=== PATIENT | male | born 1995 | race Caucasian/White ===

== ENCOUNTER 2016-03-24 01:30 | Emergency (ER) | payer SELFPAY ==
[~2016-03-24 01:30] MED LIST: IBUP600T26 PO
[2016-03-24 01:43] VITALS: BP 124/78; PULSE 64; RESP 16; TEMP 97.8; O2SAT 97
[2016-03-24] MEDS ORDERED: SODIUM CHLOR 0.9% 1000 ML INJ 1,000 ML IV SCH (02:12)
[2016-03-24] MEDS ORDERED: KETOROLAC TROMETHAMINE 30 MG/ML (IVP) VIAL IV PUSH ONE (02:15)
[2016-03-24] MEDS ORDERED: SODIUM CHLORIDE 0.9% FLUSH 5 ML FLUSH IVF PRN (02:15)
[2016-03-24] MEDS ORDERED: ONDANSETRON HCL 4 MG/2 ML VIAL IVP ONE (02:15)
[2016-03-24 02:20] VITALS: RESP 16; O2SAT 98
[2016-03-24 02:36] LABS: AUTOMATED NEUTROPHIL # 6.9 TH/MM3 (1.8-7.7); BASOPHIL # 0.1 TH/MM3 (0-0.2); BASOPHIL % 0.5 % (0.0-2.0); EOSINOPHIL # 0.1 TH/MM3 (0-0.4); EOSINOPHIL % 1.4 % (0.0-4.0); HEMATOCRIT 44.7 % (39.0-51.0); HEMO FLAGS DIFF FINAL; LYMPH % 19.2 % (9.0-44.0); LYMPHOCYTE # 1.9 TH/MM3 (1.0-4.8); MEAN CELL VOLUME 83.2 FL (80.0-100.0); MEAN CORPUSCULAR HEMOGLOBIN 27.9 PG (27.0-34.0); MEAN CORPUSCULAR HGB CONC 33.6 % (32.0-36.0); MONO % 8.8 % (0.0-8.0); NEUT % 70.1 % (16.0-70.0); PLATELET COUNT 247 TH/MM3 (150-450); RED BLOOD COUNT 5.37 MIL/MM3 (4.50-5.90); RED CELL DISTRIBUTION WIDTH 13.2 % (11.6-17.2); WHITE BLOOD COUNT 9.8 TH/MM3 (4.0-11.0)
--- NOTE | 2016-03-24 02:51 | PD ---
HPI Chief Complaint: Abdominal Pain Time Seen by Provider: 01:56 Travel History International Travel<30 days: No Contact w/Intl Traveler<30days: No Traveled to known affect area: No History of Present Illness HPI The patient is a 20 year old male who presents to the [facility] emergency department with a history of right lower quadrant abdominal pain that began 5-6 days ago. The patient reports that the pain comes and goes. He reports the pain as a cramping sensation. He reports that he has not done any heavy lifting or traumatizing area. He denies participating in any new exercise program. He reports that the pain is somewhat similar to when he had kidney stones in the past, however he denies dysuria, change in his urine coloration, urinary frequency, or urinary urgency. The patient denies having any scrotal pain or swelling. He denies having any penile discharge. The patient denies any recent fevers, cough, congestion, neck pain, chest pain, shortness of breath , vomiting, diarrhea, or neurologic symptoms. PFS Past Medical History Narrative Medical The patient's past medical history is reportedly none. ADHD: No Cancer: No Cardiovascular Problems: No Diabetes: No Diminished Hearing: No Genitourinary: No Kidney Stones: Yes Musculoskeletal: No Neurologic: No Psychiatric: No Reproductive: No Respiratory: No Migraines: No Seizures: No Thyroid Disease: No Ulcer: No Past Surgical History Narrative Surgical The patient's past surgical history is reportedly none. Surgical History: No Previous Surgery Other Surgery: No Social History Alcohol Use: Yes (OCC) Tobacco Use: No Substance Use: No Allergies-Medications (Allergen,Severity, Reaction): Coded Allergies: No Known Allergies (Verified , 03/24/16) Reported Meds & Prescriptions Reported Meds & Active Scripts Active Naproxen EC (Naproxen) 500 Mg Tabdr 500 Mg PO BID Review of Systems Except as stated in HPI: all other systems reviewed are Neg General / Constitutional: No: Fever Eyes: No: Visual changes HENT: No: Headaches Cardiovascular: No: Chest Pain or Discomfort Respiratory: No: Shortness of Breath Gastrointestinal: Positive: Abdominal Pain, No: Nausea, Vomiting, Diarrhea Genitourinary: No: Urgency, Frequency, Dysuria, Flank Pain Musculoskeletal: No: Pain Skin: No Rash Neurologic: No: Weakness Psychiatric: No: Depression Endocrine: No: Polydipsia Hematologic/Lymphatic: No: Easy Bruising Physical Exam Narrative General: The patient is well-developed well-nourished male in no acute distress. Head and Neck exam: Head is normocephalic atraumatic. Eyes: Pupils are equal round and reactive to light. Nose: Midline septum with pink mucous membranes Mouth: Dentition unremarkable. Moist mucus membranes. Posterior oropharynx is not erythematous. No tonsillar hypertrophy. Uvula midline. Airway patent. Neck: No palpable lymphadenopathy. No nuchal rigidity. No thyromegaly. Cardiovascular: Regular rate and rhythm without murmurs, gallops, or rubs. Lungs: Clear to auscultation bilaterally. No wheezes, rhonchi, or rales. Abdomen: Soft, reported tenderness on palpation in the right lower quadrant of the abdomen. Patient has tenderness on palpation of McBurney's point. No masses are palpable. No lymphadenopathy. No hernia palpated. No guarding, rebound, or rigidity. Negative [place] sign. Normal bowel sounds are audible. Extremities: No clubbing, cyanosis, or edema. 2+ pulses in all 4 extremities. Back: No spinous process tenderness to palpation. No costovertebral angle tenderness to palpation. Neurologic Exam: Grossly nonfocal. Skin Exam: No rash noted. Intact skin that is warm and dry. Data Data Last Documented VS Vital Signs Date Time Temp Pulse Resp B/P Pulse Ox O2 Delivery O2 Flow Rate FiO2 03/24/16 02:20 16 98 Room Air 03/24/16 01:43 97.8 64 124/78 Orders Complete Blood Count With Diff (03/24/16 02:12) Comprehensive Metabolic Panel (03/24/16 02:12) C-Reactive Protein (Crp) (03/24/16 02:12) Lipase (03/24/16 02:12) Lactic Acid (03/24/16 02:12) Ct Abd/Pel W Iv Contrast(Rout) (03/24/16 02:12) Iv Access Insert/Monitor (03/24/16 02:12) Ecg Monitoring (03/24/16 02:12) Oximetry (03/24/16 02:12) Ondansetron Inj (Zofran Inj) (03/24/16 02:15) Sodium Chlor 0.9% 1000 Ml Inj (Ns 1000 M (03/24/16 02:12) Sodium Chloride 0.9% Flush (Ns Flush) (03/24/16 02:15) Ketorolac Inj (Toradol Inj) (03/24/16 02:15) Iohexol 350 Inj (Omnipaque 350 Inj) (03/24/16 03:52) Labs Laboratory Tests Test 03/24/16 03/24/16 02:15 02:25 White Blood Count 9.8 TH/MM3 Red Blood Count 5.37 MIL/MM3 Hemoglobin 15.0 GM/DL Hematocrit 44.7 % Mean Corpuscular Volume 83.2 FL Mean Corpuscular Hemoglobin 27.9 PG Mean Corpuscular Hemoglobin 33.6 % Concent Red Cell Distribution Width 13.2 % Platelet Count 247 TH/MM3 Mean Platelet Volume 9.2 FL Neutrophils (%) (Auto) 70.1 % Lymphocytes (%) (Auto) 19.2 % Monocytes (%) (Auto) 8.8 % Eosinophils (%) (Auto) 1.4 % Basophils (%) (Auto) 0.5 % Neutrophils # (Auto) 6.9 TH/MM3 Lymphocytes # (Auto) 1.9 TH/MM3 Monocytes # (Auto) 0.9 TH/MM3 Eosinophils # (Auto) 0.1 TH/MM3 Basophils # (Auto) 0.1 TH/MM3 CBC Comment DIFF FINAL Differential Comment Sodium Level 138 MEQ/L Potassium Level 3.9 MEQ/L Chloride Level 104 MEQ/L Carbon Dioxide Level 26.9 MEQ/L Anion Gap 7 MEQ/L Blood Urea Nitrogen 9 MG/DL Creatinine 0.68 MG/DL Estimat Glomerular Filtration 146 ML/MIN Rate Random Glucose 91 MG/DL Calcium Level 8.7 MG/DL Total Bilirubin 0.4 MG/DL Aspartate Amino Transf 17 U/L (AST/SGOT) Alanine Aminotransferase 16 U/L (ALT/SGPT) Alkaline Phosphatase 102 U/L C-Reactive Protein LESS THAN 0.29 MG/DL Total Protein 7.1 GM/DL Albumin 3.9 GM/DL Lipase 176 U/L Lactic Acid Level 0.6 mmol/L MDM Medical Decision Making Medical Screen Exam Complete: Yes Emergency Medical Condition: Yes Medical Record Reviewed: Yes Differential Diagnosis Kidney stone, versus appendicitis, versus muscle strain Narrative Course During the course of the patients emergency department visit, the patients history, examination, and differential diagnosis were reviewed with the patient. The patient had IV access obtained and blood work sent for analysis. The patient was placed on a bus monitor with oximetry and blood pressure monitoring. A CT scan of the abdomen and pelvis was ordered. The patient was provided Toradol for pain, normal saline 1 L IV fluid bolus. The patients laboratory studies were reviewed and remarkable for a CMP is unremarkable, CRP is negative. Lipase within normal limits. CBC shows a white count of 9.8, hemoglobin 15, platelets 247 with neutrophils 70.1, monocytes 8.8. Radiology studies were reviewed and remarkable for a CT scan of the abdomen and pelvis that shows a normal appendix, 2 nonobstructing subcentimeter stones in the mid and lower pole of the left kidney, no calcified right renal stones, Unremarkable examination. The patient is resting comfortably and feels better, is alert and in no distress. The patients results and examination findings were discussed with the patient. The repeat examination is unremarkable and benign. The history, exam, diagnostic testing, and current condition do not suggest any significant pathology to warrant further testing, continued ED treatment, admission, or surgical evaluation at this point. The vital signs have been stable. The patient does not have uncontrollable pain, intractable vomiting, or other significant symptoms. The patient's condition is stable and appropriate for discharge. The patient will pursue further outpatient evaluation with a primary care physician or other designated or consulting physician as indicated in the discharge instructions. The patient expressed understanding and was agreeable with this plan. Diagnosis Primary Impression: Abdominal pain Qualified Code: R10.31 - Right lower quadrant abdominal pain Referrals: Primary Care Physician Patient Instructions: Abdominal Pain (ED), General Instructions Med/Other Pt SpecificInfo: Prescription(s) given Scripts Katina MIRAMONTES (Naproxen EC)500 Mg [id number] Mg PO BID #10 TAB Ref 0 Prov:Zulma Arechgia MD 03/24/16 Disposition: DISCHARGE HOME Condition: Stable Zulma Arechiga MD Mar 24, 2016 02:51
[2016-03-24 02:57] LABS: ALKALINE PHOSPHATASE 102 U/L (45-117); TOTAL BILIRUBIN ADULT 0.4 MG/DL (0.2-1.0)
[2016-03-24 02:59] LABS: ALT (GPT) 16 U/L (12-78); ANION GAP 7 MEQ/L (5-15); AST (GOT) 17 U/L (15-37); BICARBONATE 26.9 MEQ/L (21.0-32.0); BLOOD UREA NITROGEN 9 MG/DL (7-18); CHLORIDE 104 MEQ/L (98-107); GLOMERULAR FILTRATION RATE 146 ML/MIN (>89); POTASSIUM 3.9 MEQ/L (3.5-5.1); SODIUM (NA) 138 MEQ/L (136-145)
[2016-03-24] MEDS ORDERED: IOHEXOL 350 MG/ML 10 ML VIAL (for RAD DIAG) IV ONE (03:52)
--- NOTE | 2016-03-24 04:10 | RADRPT ---
EXAM DATE/TIME: 03/24/2016 03:49 [place] COMPARISON: No previous studies available for comparison. INDICATIONS : Right lower quadrant pain for five days. IV CONTRAST: 70 cc Omnipaque 350 (iohexol) IV ORAL CONTRAST: No oral contrast ingested. RADIATION DOSE: 4.54 CTDIvol (mGy) MEDICAL HISTORY : Renal calculi. SURGICAL HISTORY : None. ENCOUNTER: Initial ACUITY: 4 - 6 days PAIN SCALE: 8/10 LOCATION: Right lower quadrant abdomen TECHNIQUE: Volumetric scanning of the abdomen and pelvis was performed. Using automated exposure control and ad justment of the mA and/or kV according to patient size, radiation dose was kept as low as reasonably achievable to obtain optimal diagnostic quality images. FINDINGS: LOWER LUNGS: The visualized lower lungs are clear. LIVER: Homogeneous density without lesion. There is no dilation of the biliary tree. No calcified gallston es. SPLEEN: Normal size without lesion. PANCREAS: Within normal limits. KIDNEYS: Normal in size and shape. There is no mass or hydronephrosis. There is a 2 mm stone mid pole left ki dney not causing obstruction. There is a 4 mm stone lower pole left kidney not causing obstruction. N o right renal stones are demonstrated. ADRENAL GLANDS: Within normal limits. VASCULAR: There is no aortic aneurysm. BOWEL/MESENTERY: The stomach, small bowel, and colon demonstrate no acute abnormality. There is no free intraperitone al air or fluid. The appendix is unremarkable. No inflammatory changes are seen. There is stool in th e colon. ABDOMINAL WALL: Within normal limits. RETROPERITONEUM: There is no lymphadenopathy. BLADDER: No wall thickening or mass. No calcified stones. REPRODUCTIVE: Within normal limits. INGUINAL: There is no lymphadenopathy or hernia. MUSCULOSKELETAL: Within normal limits for patient age. CONCLUSION: 1. There are 2 nonobstructing subcentimeter stones in the mid and lower pole of left kidney. 2. No calcified right renal stones. 3. The rest of the exam is unremarkable. Antwan Hutchison MD on March 24, 2016 at 4:05 Board Certified Radiologist. This report was verified electronically.
[2016-03-24] MEDS ORDERED: NAPR1TAB34 PO (04:44)
== END 2016-03-24 06:24 | disposition home or self-care (01) ==
LOC: NEPC 01:30
DX: R10.31 Right lower quadrant pain (principal); N20.0 Calculus of kidney; Z87.442 Personal history of urinary calculi
CPT/HCPCS: 74177; 80053; 83605; 83690; 85025; 86140; 96361; 96374; 96375; 99284; J1885; J2405; J7030; Q9967